=== PATIENT | male | born 1990 | race Two or more races ===

== ENCOUNTER 2023-10-16 22:33 | Emergency (ER) | payer OTHER, SELFPAY ==
--- NOTE | ~2023-10-16 | CT_ITS ---
EXAMINATION: CT HEAD WITHOUT CONTRAST CLINICAL INFORMATION: Trauma, headache COMPARISON: None available. TECHNIQUE: Contiguous axial imaging was performed from the skull base to vertex without intravenous administration of contrast. This CT examination was performed using dose optimization techniques as appropriate, variously including the following: *Automated exposure control *Adjustment of mA and/or kV according to patient size (this includes techniques or standardized protocols for targeted exams where dose is matched to indication/reason for exam; i.e. extremities or head) *Use of iterative reconstruction technique DLP: 710 mGy-cm FINDINGS: There is no evidence of acute intracranial hemorrhage or territorial infarction. No abnormal mass-effect or midline shift is seen. Wells to white matter differentiation is well preserved. No extra-axial fluid collections are identified. The ventricles are normal in size. Mild right temporoparietal scalp soft tissue swelling. No acute fracture is seen. The osseous structures and soft tissues are normal. The mastoid air cells and visualized portions of the paranasal sinuses are well-aerated. CT/CT head/brain wo IV con IMPRESSION: No acute intracranial pathology. Electronically signed by: Constantine Varma MD 10/17/2023 02:11 AM EDT
[2023-10-16 22:37] VITALS: BP 150/83; PULSE 18; O2SAT 100
[2023-10-16 22:39] VITALS: BP 139/77; PULSE 69; RESP 20; TEMP 36.8; O2SAT 99; BMI 22.9
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
[2023-10-17 02:56] VITALS: BP 139/77; PULSE 69; RESP 20; TEMP 36.8; O2SAT 99
== END 2023-10-17 02:57 | disposition home or self-care (01) ==
PROVIDERS: Emergency Provider Emergency Medicine
DX: S06.0X0A Concussion without loss of consciousness, initial encounter (principal); W51.XXXA Accidental striking against or bumped into by another person, initial encounter; R51.9 Headache, unspecified; F41.9 Anxiety disorder, unspecified; Y93.67 Activity, basketball; Y92.310 Basketball court as the place of occurrence of the external cause; Y99.9 Unspecified external cause status
CPT/HCPCS: 70450; 99282; 99284